=== PATIENT | male | born 1945 | race Caucasian/White ===

== ENCOUNTER 2023-10-06 10:33 | Emergency (ER) | payer MEDICARE, BC, SELFPAY ==
[2023-10-06 10:43] VITALS: BP 146/79
--- NOTE | 2023-10-06 11:07 | ED.GENMED ---
History of Present Illness
General
Chief Complaint: Skin Problem
Source: patient
Time Seen by Provider: 10/06/23 10:56
History of Present Illness
History of Present Illness:
78-year-old male with past medical history of hyperlipidemia presenting to the ER for evaluation after having a rash to the right hand and forearm for approximately 1-1/2 to 2 weeks, not any worse today but has not gotten any better. Patient states
it is not pruritic but more of a stinging sensation. Rash initially started on the right index finger going into the interdigital webbing space and the right middle finger. Over time newer lesions started to show up on the palmar aspect of the
hand and forearm. Patient now noting the initial portions of the rash on the hand have started to scab but still has some small fluid-filled areas on the forearm and even noticed a small area on the distal right humerus. Patient states he did not
do any recent gardening or coming to any contact with [employer] dada. He notes that he has had chickenpox in the past but no known history of shingles. He did not get his shingles vaccine. No fevers or infectious symptoms. No other concerns
presently.
Past History
Past History
ED Past Medical History: Hypercholesterolemia
ED Past Surgical History: Orthopedic
Social History
Tobacco: Non-smoker
Alcohol: Occasional
Drug: None
Personal:
Living: with family
Employment: Retired
Review of Systems
Review of Systems
All Other Systems: ROS reviewed and negative except as documented in HPI and ROS
Phy Exam
Physical Exam
Physical Exam:
GENERAL: Alert , in no apparent distress
EYE: conjunctiva clear
Head: Normocephalic atraumatic
NECK: Supple,
ENT: mmm.
LUNGS: no acute respiratory distress
NEUROLOGICAL: Alert and oriented
SKIN: Warm and dry, multiple small dried vesicles to ulnar aspect of hand. vesicles are more clear fluid filled extending proximally into forearm/distal humerus. Lesions are mainly along ulnar aspect of right forearm/hand. Slightly erythematous
base. No streaking
MUSCULOSKELETAL: well perfused.
PSYCH: Normal and appropriate interaction.
Scores
Heart Failure Risk
Heart Failure Risk Score: Not Applicable
Heart Score for Chest Pain Patients
STEMI patient?: Not applicable
Withdrawal Assessment of Alcohol
Withdrawal Assessment Completed?: Not applicable
Course
Vital Signs
Initial and Last Documented VS:
Initial Vital Signs
Temp Pulse Resp BP Pulse Ox
97.8 F 70 18 146/79 96
10/06/23 10:43 10/06/23 10:43 10/06/23 10:43 10/06/23 10:43 10/06/23 10:43
Last Documented Vital Signs
Temp Pulse Resp BP Pulse Ox
97.8 F 70 18 146/79 96
10/06/23 10:43 10/06/23 10:43 10/06/23 10:43 10/06/23 10:43 10/06/23 10:43
MDM/Problems Addressed
Differential Diagnosis Includes:
Shingles, poison dada, contact dermatitis, no concerns for secondary cellulitis
MDM/Problems Addressed:
78-year-old male presenting to the emergency department for evaluation of a rash to the right hand and forearm that have been ongoing for about 1-1/2 to 2 weeks. Rash is nonpruritic. Patient does not have any contact with substances that may have
caused the rash. He notes no gardening or contact with poison dada. Symptoms seem to be most suggestive of shingles especially given that the rash is located mainly on the ulnar aspect of the hand and forearm to the right upper extremity. Will
treat with Valtrex although I did note to the patient that since it has been 1-1/2 to 2 weeks he may not notice any symptomatic relief as he would have if he were to have initiated the medication within 72 hours of onset of the rash. Patient can
continue Motrin/ibuprofen as needed. He will follow-up with primary care provider. Aware of return precautions to the ER.
*Pulse Oximetry
Patient hypoxic: no
*Critical Care Note
Total Time (30-74mins, 75-104mins- exclusive of procedures): Not Applicable
ED Attending Note
-
Portions of this chart may have been created with voice recognition software.� Occasional wrong word or��sound alike� substitutions may have occurred due to the inherent limitations of voice recognition software.
Discharge Plan
Departure
Patient Disposition: Home (Routine Discharge)
Date of Disposition: 10/06/23
Time of Disposition: 11:07
Patient with high blood pressure during this ER visit?: Yes
Discharge Problem:
Shingles rash
Instructions: Shingles
Prescriptions:
New
valacyclovir [Valtrex] 1 gram tablet
1,000 mg PO TID 7 Days Qty: 21 0RF
Interventions
Interventions:
*Risk Screen - Suicide Last Done: 10/06/23 10:43
*General Assessment Last Done: 10/06/23 10:43
*Neglect/Abuse Screening Last Done: 10/06/23 10:43
*Nursing Disposition Last Done: 10/06/23 11:33
ED-Skin Assessment Last Done: 10/06/23 11:00
Discharge Date and Time
Discharge Date/Time: 10/06/23 11:33
Print Language: GRENADIAN
== END 2023-10-06 11:33 | disposition home or self-care (01) ==
LOC: EMR 10:33
PROVIDERS: EMERGENCY PHYSICIAN Emergency Medicine; FAMILY PHYSICIAN Family Medicine
DX: B02.9 Zoster without complications (principal); R03.0 Elevated blood-pressure reading, without diagnosis of hypertension; E78.00 Pure hypercholesterolemia, unspecified
CPT/HCPCS: 99282